=== PATIENT | female | born 1945 | race Caucasian/White ===

== ENCOUNTER → 2016-11-28 | Outpatient (CLI) | payer OTHER, BC | LOC: BHFA 14:45 | PROVIDERS: ATTEND Internal Medicine Interventional Cardiology | DX: I48.91 Unspecified atrial fibrillation (principal); E78.5 Hyperlipidemia, unspecified; I10 Essential (primary) hypertension ==

== ENCOUNTER → 2017-01-26 | Outpatient (CLI) | payer OTHER, BC | LOC: BHFA 15:15 | PROVIDERS: ATTEND Internal Medicine Cardiovascular Disease | DX: I48.92 Unspecified atrial flutter (principal); I48.91 Unspecified atrial fibrillation; E78.5 Hyperlipidemia, unspecified; I10 Essential (primary) hypertension; I05.9 Rheumatic mitral valve disease, unspecified; Z95.2 Presence of prosthetic heart valve ==

== ENCOUNTER 2017-01-29 10:22 | Day surgery (SDC) | payer OTHER, BC ==
[2017-01-29] MEDS ORDERED: MIDAZOLAM 2 MG/2 ML VIAL IVP ONE (10:34)
[2017-01-29] MEDS ORDERED: PROPOFOL 200 MG/20 ML VIAL IVP ONE (10:34)
[2017-01-29] MEDS ORDERED: fentaNYL 100 MCG/2 ML INJ IVP ONE (10:34)
[2017-01-29] MEDS ORDERED: NS 500 ML IV ONE (10:34)
--- NOTE | 2017-01-29 10:52 | CPEKG ---
Heart Rate: 92 RR Interval: 652 QRSD Interval: 96 QT Interval: 396 QTC Interval: 490 QRS [place]: -9 T Wave [place]: 97 EKG Severity - ABNORMAL ECG - EKG Impression: Sinus rhythm with intermittent competing junctional rhythm Electronically Signed By: Tushar Hartley 29-Jan-2017 17:10:21
[2017-01-29 11:18] LABS: ANION GAP 11 mEq/L (8-16); CALCIUM 10.3 mg/dL (8.5-10.4); CARBON DIOXIDE 19 mEq/l (22-31); CHLORIDE 110 mEq/L (97-110); CREATININE 0.9 mg/dL (0.6-1.0); GLOMERULAR FILTRATION RATE > 60; GLUCOSE 85 mg/dL (70-100); MAGNESIUM 2.3 mg/dL (1.6-2.3); POTASSIUM 4.2 mEq/L (3.5-5.2); SODIUM 140 mEq/L (134-144)
[2017-01-29 11:20] LABS: INR 2.05 (0.83-1.16); PROTIME(PATIENT) 23.3 SEC (12.0-15.0)
[2017-01-29 11:21] LABS: APTT 40.3 SEC (23.0-38.0)
--- NOTE | 2017-01-29 12:10 | PDTEE1 ---
MASON Cardioversion Procedure Procedure: Electrical Cardioversion, Transesophageal Echo Indications: Atrial Fibrillation Consent: Signed and in Chart Anticoagulation: Xarelto Procedural Details: Pads were placed in anterior-posterior position. MASON probe was advanced and standard images obtained. There is no evidence of left atrial or left atrial appendage thrombus. Synchronized cardioversion attempt #1: 200J Results: Normal sinus rhythm Conclusions: Successful MASON Cardioversion Patient Problems: Problems Problem Status Onset Mitral valve insufficiency Acute Atrial fibrillation Acute
--- NOTE | 2017-01-29 12:18 | CPEKG ---
Heart Rate: 67 RR Interval: 896 P-R Interval: 252 QRSD Interval: 108 QT Interval: 472 QTC Interval: 499 P [place]: 87 QRS [place]: -8 EKG Severity - ABNORMAL ECG - EKG Impression: SINUS RHYTHM EKG Impression: FIRST DEGREE AV BLOCK EKG Impression: BORDERLINE PROLONGED QT INTERVAL Electronically Signed By: Tushar Hartley 29-Jan-2017 17:00:34
== END 2017-01-29 13:20 | disposition home or self-care (01) ==
LOC: FCATH 10:22
PROVIDERS: ATTEND Internal Medicine Interventional Cardiology
PROC: B245ZZ4 Ultrasonography of Left Heart, Transesophageal (ICD-10-PCS; principal; 2017-01-29)
PROC: 5A2204Z Restoration of Cardiac Rhythm, Single (ICD-10-PCS; principal; 2017-01-29)
DX: I48.91 Unspecified atrial fibrillation (principal); E03.9 Hypothyroidism, unspecified; Z95.3 Presence of xenogenic heart valve; E78.5 Hyperlipidemia, unspecified
CPT/HCPCS: J2250; J2704

== ENCOUNTER → 2017-02-03 | Outpatient (CLI) | payer OTHER, BC | LOC: BHFA 15:00 | PROVIDERS: ATTEND Internal Medicine Interventional Cardiology | DX: I48.91 Unspecified atrial fibrillation (principal) ==

== ENCOUNTER → 2018-01-15 | Outpatient (CLI) | payer OTHER, BC | LOC: BHFA 15:00 | PROVIDERS: ATTEND Internal Medicine Interventional Cardiology | DX: I48.91 Unspecified atrial fibrillation (principal); I10 Essential (primary) hypertension; Z95.2 Presence of prosthetic heart valve; E78.5 Hyperlipidemia, unspecified ==